=== PATIENT | female | born 1970 | race Two or more races ===

== ENCOUNTER 2024-01-14 21:10 | Inpatient (IN) | payer BC ==
[2024-01-14 21:11] VITALS: BMI 22.8
[2024-01-14] MEDS ORDERED: BENZOCAINE/MENTHOL (CHLORASEPTIC ) LOZENGE MM PRN (21:56)
[2024-01-14] MEDS ORDERED: LOPERAMIDE HCL 2 MG CAPSULE PO PRN (21:56)
[2024-01-14] MEDS ORDERED: MAGNESIUM HYDROX 2400MG/30ML ORAL SUSPENSION 30 ML CUP PO PRN (21:56)
[2024-01-14] MEDS ORDERED: DICYCLOMINE HCL 10 MG CAPSULE PO PRN (21:56)
[2024-01-14] MEDS ORDERED: guaiFENesin 600 MG TABLET.ER (FP) PO PRN (21:56)
[2024-01-14] MEDS ORDERED: BENZONATATE 200 MG CAPSULE PO PRN (21:56)
[2024-01-14] MEDS ORDERED: MAG HYDROX/AL HYDROX/SIMETH 30 ML UNIT-DOSE CUP PO PRN (21:56)
[2024-01-14] MEDS ORDERED: BISMUTH SUBSALICYLATE 524 MG/30 ML PO PRN (21:56)
[2024-01-14] MEDS ORDERED: NALOXONE HCL 0.4 MG/ML VIAL IM PRN (21:56)
[2024-01-14] MEDS ORDERED: IBUPROFEN 400 MG TABLET (FP) PO PRN (21:56)
[2024-01-14] MEDS ORDERED: NALOXONE HCL (KLOXXADO) 8 MG SPRAY NS PRN (21:56)
[2024-01-14] MEDS ORDERED: NICOTINE POLACRILEX 2 MG LOZENGE BC PRN (21:56)
[2024-01-14] MEDS ORDERED: IBUPROFEN 600 MG TABLET (FP) PO PRN (21:56)
[2024-01-14] MEDS ORDERED: ONDANSETRON *ODT* 4 MG TABLET SL PRN (21:56)
[2024-01-14] MEDS ORDERED: POLYETHYLENE GLYCOL (HEALTHYLAX) 3350 17 GM PACKET PO PRN (21:56)
[2024-01-14] MEDS ORDERED: chlordiazePOXIDE HCL 25 MG CAPSULE PO PRN (21:56)
[2024-01-14] MEDS ORDERED: chlordiazePOXIDE HCL 25 MG CAPSULE ONE (22:02)
[2024-01-14] MEDS: chlordiazePOXIDE HCL 25 MG CAPSULE PO ONE (22:07)
[2024-01-14] MEDS: THIAMINE 100 MG TABLET PO SCH (22:35)
[2024-01-14] MEDS: MELATONIN 5 MG TABLETS PO SCH (22:35)
[2024-01-14] MEDS: chlordiazePOXIDE HCL 25 MG CAPSULE PO SCH (22:36)
[2024-01-15] MEDS: methaDONE HCL 10 MG TABLET PO SCH (08:49)
[2024-01-15] MEDS: PRENATAL VITAMINS W/ FOLIC ACID TABLET (FP) PO SCH (10:42)
[2024-01-15] MEDS: NICOTINE 14 MG/24 HOURS TOPICAL PATCH TD SCH (10:43)
[2024-01-15] MEDS: methaDONE HCL 10 MG TABLET PO ONE (11:28)
[2024-01-15 12:16] LABS: HEMATOCRIT 34.9 % (32.4-45.2); HEMOGLOBIN 11.9 GM/dL (10.7-15.3); MCH 34.7 pg (25.7-33.7); MEAN CELL VOLUME 102.1 fl (80-96); MEAN PLT VOLUME 8.7 fl (7.5-11.1); PLATELET COUNT 153 10^3/uL (134-434); RBC 3.42 M/mm3 (3.60-5.2)
[2024-01-15 12:17] LABS: CHLORIDE 110 mmol/L (98-107); POTASSIUM 3.8 mmol/L (3.5-5.1); SODIUM 142 mmol/L (136-145)
[2024-01-15 12:21] LABS: BLOOD UREA NITROGEN 13.3 mg/dL (7-18); CALCIUM 8.6 mg/dL (8.5-10.1); GLUCOSE,RANDOM 97 mg/dL (74-106)
[2024-01-15 12:22] LABS: ANION GAP 5 mmol/L (4-13); CO2 27 mmol/L (21-32)
[2024-01-15 12:23] LABS: CREATININE 0.7 mg/dL (0.55-1.3); SGPT/ALT 28 U/L (13-61)
[2024-01-15 12:25] LABS: BILIRUBIN,TOTAL 0.5 mg/dL (0.2-1); TOT PROT 6.6 g/dl (6.4-8.2)
[2024-01-15 12:26] LABS: ALK PHOS 83 U/L (45-117)
[2024-01-15 12:35] LABS: ALBUMIN 2.9 g/dl (3.4-5.0)
[2024-01-15 12:39] LABS: SGOT/AST 39 U/L (15-37)
[2024-01-15] MEDS ORDERED: methaDONE HCL 10 MG TABLET PO PRN (12:39)
[2024-01-15] MEDS: PATIENT'S OWN MEDICATION (NON-FORMULARY) (Emtricitabine/Tenofovir (Tdf) [Truvada 100 Mg-15 PO SCH (13:28)
[2024-01-15] MEDS: EMTRICITABINE 200MG/TENOFOVIR 300MG PO SCH (14:41)
[2024-01-15] MEDS: RALTEGRAVIR POTASSIUM 400 MG TAB PO SCH (14:41)
[2024-01-15] MEDS: cloNIDine HCL 0.1 MG TABLET PO SCH (14:43)
[2024-01-15] MEDS ORDERED: QUEtiapine FUMARATE 100 MG TABLET (FP) PO SCH (22:00)
[2024-01-15] MEDS: QUEtiapine FUMARATE 50 MG TABLET PO SCH (22:12)
[2024-01-15] MEDS: busPIRone HCL 5 MG TABLET PO SCH (22:12)
[2024-01-16] MEDS: chlordiazePOXIDE HCL 25 MG CAPSULE PO SCH (06:00)
[2024-01-16] MEDS: methaDONE 40 MG, methaDONE 10 MG PO ONE (06:01)
[2024-01-16] MEDS: ESCITALOPRAM OXALATE 10 MG TABLET PO SCH (10:12)
[2024-01-16] MEDS: methaDONE HCL 40 MG DISPERSABLE TABLET PO SCH (12:03)
[2024-01-17] MEDS ORDERED: chlordiazePOXIDE HCL 10 MG CAPSULE PO PRN
[2024-01-17] MEDS ORDERED: cloNIDine HCL 0.1 MG TABLET PO PRN
[2024-01-17] MEDS: chlordiazePOXIDE HCL 10 MG CAPSULE PO SCH (06:00)
[2024-01-17] MEDS ORDERED: methaDONE 40 MG, methaDONE 20 MG PO ONE (06:00)
[2024-01-17] MEDS: hydrOXYzine PAMOATE 25 MG CAPSULE (FP) PO ONE (13:04)
[2024-01-17] MEDS: chlordiazePOXIDE 5 MG CAPSULE PO SCH (16:31)
[2024-01-17] MEDS: chlordiazePOXIDE 5 MG CAPSULE PO PRN (21:45)
[2024-01-18] MEDS: chlordiazePOXIDE 5 MG CAPSULE PO SCH (05:51)
[2024-01-18] MEDS ORDERED: methaDONE 40 MG, methaDONE 30 MG PO ONE (06:00)
[2024-01-18] MEDS ORDERED: methaDONE HCL 40 MG DISPERSABLE TABLET PO SCH (10:13)
[2024-01-18] MEDS: methaDONE HCL 10 MG TABLET PO ONE (11:03)
[2024-01-19] MEDS: methaDONE 40 MG, methaDONE 10 MG PO SCH (05:35)
[2024-01-19] MEDS: chlordiazePOXIDE 5 MG CAPSULE PO ONE (05:35)
[2024-01-19] MEDS ORDERED: methaDONE HCL 40 MG DISPERSABLE TABLET PO SCH (06:00)
[2024-01-19] MEDS ORDERED: methaDONE HCL 40 MG DISPERSABLE TABLET PO ONE (06:00)
[2024-01-19] MEDS: methaDONE HCL 10 MG TABLET PO ONE (15:55)
[2024-01-19] MEDS: ACETAMINOPHEN 325 MG TABLET (FP) PO PRN (23:06)
[2024-01-20] MEDS ORDERED: methaDONE 80 MG, methaDONE 10 MG PO ONE (06:00)
[2024-01-20 09:09] VITALS: BP 101/61; PULSE 76; RESP 18; TEMP 97.4
== END 2024-01-20 09:49 | disposition home or self-care (01) | DRG 773 ==
LOC: YASAS 21:10 → Y3N 21:48
PROVIDERS: ADMIT Allergy & Immunology; ATTEND Surgery
PROC: HZ2ZZZZ Detoxification Services for Substance Abuse Treatment (ICD-10-PCS; principal; 2024-01-14)
DX: F10.230 Alcohol dependence with withdrawal, uncomplicated (principal); F11.20 Opioid dependence, uncomplicated; F17.210 Nicotine dependence, cigarettes, uncomplicated; F19.24 Other psychoactive substance dependence with psychoactive substance-induced mood disorder; F31.9 Bipolar disorder, unspecified; Z21 Asymptomatic human immunodeficiency virus [HIV] infection status; G47.00 Insomnia, unspecified; R94.31 Abnormal electrocardiogram [ECG] [EKG]; Z79.899 Other long term (current) drug therapy; Z86.59 Personal history of other mental and behavioral disorders
CPT/HCPCS: 36415; 80053; 80307; 81025; 82962; 85027; 86780; 93005; 93010